=== PATIENT | female | born 1945 | race Caucasian/White ===

== ENCOUNTER → 2023-10-20 10:35 | Outpatient (REF) | payer MEDICARE, SELFPAY | LOC: WDC 10:35 | PROVIDERS: ATTENDING PHYSICIAN Nurse Practitioner Adult Health | DX: Z12.31 Encounter for screening mammogram for malignant neoplasm of breast (principal) | CPT/HCPCS: 77063; 77067 ==

== ENCOUNTER 2023-11-16 06:07 | Day surgery (SDC) | payer MEDICARE, SELFPAY ==
[2023-10-27 13:08] VITALS: BMI 31.0
[2023-10-27 14:12] LABS: Hematocrit 42.2 % (37.0-47.0); Hemoglobin 14.7 g/dL (12.0-16.0); Mean Corp Hgb Conc. 34.8 g/dL (33.0-37.0); Mean Corpuscular Hgb 30.9 pg (27.0-31.0); Mean Corpuscular Volume 88.7 fL (81.0-99.0); Mean Platelet Volume 9.7 fL (7.4-10.4); Platelet Count 315 10^3/uL (130-400); Red Blood Cell Count 4.76 10^6/uL (4.20-5.40); Red Cell Dist. Width 12.8 % (11.5-14.5); White Blood Cell Count 9.7 10^3/uL (4.8-10.8)
[2023-10-27 14:30] LABS: ALT (SGPT) 23 U/L (0-35); AST (SGOT) 29 U/L (14-36); Albumin 4.7 g/dl (3.5-5.0); Alkaline Phosphatase 139 U/L (38-126); Blood Urea Nitrogen 14 mg/dl (7-17); Calcium 10.4 mg/dl (8.4-10.2); Carbon Dioxide 35 mmol/L (22-30); Chloride 93 mmol/L (98-107); Estimated Creatinine Clearance 76 ml/min; Glucose 88 mg/dl (70-99); Potassium 4.6 mmol/L (3.5-5.1); Sodium 138 mmol/L (135-145); Total Bilirubin 0.8 mg/dl (0.2-1.3); Total Protein 6.9 g/dl (6.3-8.2); eGFR > 60.00
[2023-10-27 22:46] LABS: Glycohemoglobin (HgbA1c) 6.6 % (4.0-5.6)
--- NOTE | 2023-11-02 14:56 | VNURNOTE ---
Patient is scheduled for an elective R TKA on 11/16/23- she is a same day patient. Spoke with patient prior to surgery. Introduced role of VN liaison. Patient reports that she lives with her spouse in a MULTI story home. She will create a first
floor set up and there is a powder room on the charge entry. 3 ELLA. She currently functions independently. She has a rolling walker, cane, gel packs. She has never had VN services.
PCP is Roberta Arevalo NP.
Pharm is [facility] [address] [place]
Discussed orthopedic program and post surgical plans.
Reviewed that she will have VN services initially and will then start outpatient PT at [facility] in [place].
Patient selects VN for her home care needs and will go to [facility] for outpatient PT.
Patient is in agreement with plan and states that her spouse will be home with her. Daughter lives nearby and can also assist.
Patient completed online education video.
Referral placed in [facility].
[2023-11-11 13:18] VITALS: BMI 31.0
[2023-11-16] VITALS (24 sets, daily range): BP systolic 114–211; BP diastolic 55–106; PULSE 70; O2SAT 98; BMI 31.0
[2023-11-16 06:38] LABS: Glucose - Point of Care 144 mg/dl (70-99)
[2023-11-16] MEDS: TYLENOL 650 MG PO (06:39)
[2023-11-16] MEDS: CELEBREX 200 MG PO (06:39)
[2023-11-16] MEDS: NORMOSOL-R/PLASMALYTE-A 1000 IV ×2 (06:40→11:28)
[2023-11-16 08:58] LABS: Glucose - Point of Care 150 mg/dl (70-99)
[2023-11-16] MEDS: APRESOLINE 5 MG IV ×2 (09:57→10:07)
--- NOTE | 2023-11-16 10:05 | SUR.PHASEI ---
BP elevated, Hydralazine ordered by DR James. SDS transfer put on hold for same reason. Cheo ARAMBULA BSN.
[2023-11-16] MEDS: ANCEF 5 IV (11:28)
[2023-11-16 12:23] LABS: Glucose - Point of Care 293 mg/dl (70-99)
[2023-11-16] MEDS: NOVOLOG vial 3 UNITS SC (13:06)
== END 2023-11-16 13:25 | disposition home or self-care (01) ==
LOC: SDS 06:07
PROVIDERS: ATTENDING PHYSICIAN Specialist; FAMILY PHYSICIAN Nurse Practitioner Adult Health; OTHER PHYSICIAN Internal Medicine Hematology & Oncology
PROC: 0SRC0J9 Replacement of Right Knee Joint with Synthetic Substitute, Cemented, Open Approach (ICD-10-PCS; 2023-11-16)
DX: M17.11 Unilateral primary osteoarthritis, right knee (principal); D68.51 Activated protein C resistance; E11.9 Type 2 diabetes mellitus without complications; E66.9 Obesity, unspecified; Z68.31 Body mass index [BMI] 31.0-31.9, adult; I10 Essential (primary) hypertension; E78.5 Hyperlipidemia, unspecified; Z88.1 Allergy status to other antibiotic agents
CPT/HCPCS: 27447; 36415; 73560; 80053; 82962; 83036; 85027; 87070; 93005; 97110; 97162; C1713; C1776

== ENCOUNTER 2023-11-21 18:59 | Inpatient (IN) | payer MEDICARE, SELFPAY ==
[2023-11-21] VITALS (12 sets, daily range): BP systolic 142–211; BP diastolic 61–88; PULSE 68–76; BMI 30.6; BMI 30.9
[2023-11-21] MEDS: NSS 1000 IV (12:50)
--- NOTE | 2023-11-21 12:50 | ED.GENMED ---
History of Present Illness
General
Chief Complaint: Fainting/Passed Out
Time Seen by Provider: 11/21/23 12:36
History of Present Illness
History of Present Illness:
78-year-old female presents to the emergency department for evaluation of weakness, dizziness, and multiple syncopal episodes. Reportedly had a syncopal event while undergoing x-rays of her knee. She is 5 days status post right total knee
replacement, of note she was started on Eliquis prophylactically for clot prevention due to history of factor V. She had a repeated syncopal event this morning. She reports feeling thirsty despite drinking copious amounts of water. Denies any
known head injuries with these falls but did discover a new 'lump' to the left scalp today. No chest pain or shortness of breath, no palpitations preceding the syncopal events.
Past History
Past History
ED Past Medical History: None
ED Past Surgical History: None
Review of Systems
Review of Systems
Allergies reviewed?: Yes
All Other Systems: ROS reviewed and negative except as documented in HPI and ROS
Phy Exam
Physical Exam
Physical Exam:
GEN: Well appearing, NAD, WDWN
HEENT: Oral mucosa moist, no scleral icterus, no nasal congestion
Cardiac: Regular rate and rhythm, no murmurs
Lung: No respiratory distress, no tachypnea
MSK: No gross deformity or injuries
Skin: Good color, no pallor or jaundice, no rashes
Neuro: AO x3; CN II-XII grossly intact. BUE strength 5/5 in all [place], sensation intact and symmetric. BLE strength 5/5 in all [place], sensation intact and symmetric
Psych: Calm, cooperative
Course
Orders/Labs/Results
Orders:
Orders
11/21/23 12:44
Electrocardiogram (*1) Urgent
Reason for Study: Syncope
CT Head W/o Iv Contrast Urgent
Comment:
Reason For Exam: possible head injury on Eliquis
EKG- Treatment ONCE
11/21/23 12:45
0.9% Sodium Chloride 1000 ml [Nss] 1,000 ml IV BOLUS
11/21/23 12:50
Complete Blood Count/With Diff Urgent
Comprehensive Metabolic Panel Urgent
11/21/23 14:07
Potassium Chloride [KCl] 40 meq PO NOW STA
11/21/23 17:10
BMP [Basic Metabolic Panel] Routine
Serum Osmolality Routine
Comment: ADD ON
11/21/23 17:40
Add On- LAB Urgent
Tests Added?: serum osmolality
11/21/23 17:44
Urinalysis Reflex To Culture Urgent
Urine Sodium Urgent
11/21/23 18:45
Admit/Transfer Patient As Directed
Co-Sign Provider:
Level of Care: Inpatient admission
Assign to:: Telemetry
Physician / Group: Bernardino
Diagnosis: Syncope, Hyponatremia
Reason for Telemetry: Syncope
Date to Stop Telemetry: 11/23/23
Time to Stop Telemetry: 11:00
Reason for Hospitalization: Syncope, Hyponatremia
Expected length of stay greater than two midnights?: Yes
ELOS- Estimated Length of Stay in days: 2
I certify the patient meets the requirements for IP care: Yes
PRN Pain Medication Management As Directed
May give lesser potent ordered pain med per pt: Yes
preference::
Protocol:: Medication orders for pain may be administered in a
manner that supports deferring to patient preference
when the pt is:
- Requesting an ordered lesser potent pain medication.
Least to most potent pain medications are defined
as: acetaminophen < NSAID < tramadol < opioids
(morphine, oxycodone, hydromorphone).
- Requesting a lesser dose of the same medication IF
ORDERED.
- Requesting a less intrusive route of administration
if both routes are prescribed by the provider (PO <
IV).
11/21/23 18:47
Code Status As Directed
Resuscitation Status: Full Code
11/21/23 18:48
Add On- LAB Urgent
Tests Added?: Urine Osm
11/21/23 18:55
Osmolality, Random Urine Urgent
11/21/23 19:31
COVID-19 Antigen Urgent
Source: Nasal Swab
11/23/23 11:00
DC Protocol for Telemetry ONCE
Abnormal Lab Results
11/21/23 11/21/23
12:50 17:10
WBC 15.8 H 10^3/uL
(4.8-10.8)
RBC 4.12 L 10^6/uL
(4.20-5.40)
Hct 34.2 L %
(37.0-47.0)
Abs Immat Gran (auto) 0.1 H 10^3/uL
(0-0.05)
Absolute Neuts (auto) 12.6 H 10^3/uL
(1.4-6.5)
Absolute Monos (auto) 1.5 H 10^3/uL
(0.1-0.6)
Immature Gran % 0.8 H %
(0-0.5)
Neutrophils % 79.6 H %
(42.2-75.2)
Lymphocytes % 9.3 L %
(20.5-51.1)
Sodium 129 L mmol/L 128 L mmol/L
(135-145) (135-145)
Potassium 3.3 L mmol/L
(3.5-5.1)
Chloride 86 L mmol/L 87 L mmol/L
(98-107) (98-107)
Carbon Dioxide 32 H mmol/L 33 H mmol/L
(22-30) (22-30)
BUN 21 H mg/dl 20 H mg/dl
(7-17) (7-17)
Glucose 175 H mg/dl 207 H mg/dl
(70-99) (70-99)
Total Bilirubin 2.3 H mg/dl
(0.2-1.3)
AST 41 H U/L
(14-36)
ALT 40 H U/L
(0-35)
Total Protein 6.2 L g/dl
(6.3-8.2)
11/21/23 12:50
11/21/23 17:10
Vital Signs
Initial and Last Documented VS:
Initial Vital Signs
Pulse Resp BP Pulse Ox
65 18 211/88 98
11/21/23 12:34 11/21/23 12:34 11/21/23 12:34 11/21/23 12:34
Last Documented Vital Signs
Pulse Resp BP Pulse Ox
73 14 157/61 98
11/21/23 17:00 11/21/23 17:00 11/21/23 18:00 11/21/23 17:00
MDM/Problems Addressed
MDM/Problems Addressed:
78-year-old female presents with recurrent syncope and generalized weakness/dizziness after total knee replacement earlier this week. She appears clinically well and has no focal neurologic deficits. Workup reveals mild hyponatremia and likely
some component of hypovolemia, she was given IV fluids and on reevaluation of labs hyponatremia was unchanged. She continues to feel lightheaded and feels somewhat unsteady with gait and ambulation thus will admit for further evaluation and
management
*Critical Care Note
Total Time (30-74mins, 75-104mins- exclusive of procedures): Not Applicable
ED Attending Note
-
Portions of this chart may have been created with voice recognition software.� Occasional wrong word or��sound alike� substitutions may have occurred due to the inherent limitations of voice recognition software.
Discharge Plan
Departure
Patient Disposition: Admit
Date of Disposition: 11/21/23
Time of Disposition: 17:48
Admit to: Med/Surg
Presentation/result/management discussed w/ accepting MD/DO: Hospitalist
Discharge Problem:
Acute hyponatremia, Syncope
Interventions
Interventions:
*Risk Screen - Suicide Last Done: 11/21/23 12:45
*General Assessment Last Done: 11/21/23 12:48
*Neglect/Abuse Screening Last Done: 11/21/23 12:45
*ED COVID-19 Vaccine History Last Done: 11/21/23 12:46
ED- Cardiac Assessment Last Done: 11/21/23 13:40
ED- Neurological Assessment Last Done: 11/21/23 13:44
[2023-11-21 12:58] LABS: % Basophils 0.1 % (0-2); % Immature Granulocytes 0.8 % (0-0.5); % Lymphocytes 9.3 % (20.5-51.1); % Monocytes 9.2 % (1.7-9.3); % Neutrophils 79.6 % (42.2-75.2); Absolute Eosinophils 0.2 10^3/uL (0-0.7); Absolute Immature Granulocytes 0.1 10^3/uL (0-0.05); Absolute Lymphocytes 1.5 10^3/uL (1.2-3.4); Absolute Monocytes 1.5 10^3/uL (0.1-0.6); Absolute Neutrophils 12.6 10^3/uL (1.4-6.5); Hematocrit 34.2 % (37.0-47.0); Hemoglobin 12.2 g/dL (12.0-16.0); Mean Corp Hgb Conc. 35.7 g/dL (33.0-37.0); Mean Corpuscular Hgb 29.6 pg (27.0-31.0); Mean Platelet Volume 9.5 fL (7.4-10.4); Nucleated Red Blood Cells % 0 %; Platelet Count 331 10^3/uL (130-400); Red Blood Cell Count 4.12 10^6/uL (4.20-5.40); Red Cell Dist. Width 13.2 % (11.5-14.5); White Blood Cell Count 15.8 10^3/uL (4.8-10.8)
[2023-11-21 13:43] LABS: ALT (SGPT) 40 U/L (0-35); AST (SGOT) 41 U/L (14-36); Albumin 4.2 g/dl (3.5-5.0); Alkaline Phosphatase 91 U/L (38-126); Blood Urea Nitrogen 21 mg/dl (7-17); Calcium 9.5 mg/dl (8.4-10.2); Carbon Dioxide 32 mmol/L (22-30); Chloride 86 mmol/L (98-107); Estimated Creatinine Clearance 88 ml/min; Glucose 175 mg/dl (70-99); Potassium 3.3 mmol/L (3.5-5.1); Sodium 129 mmol/L (135-145); Total Bilirubin 2.3 mg/dl (0.2-1.3); Total Protein 6.2 g/dl (6.3-8.2); eGFR > 60.00
[2023-11-21] MEDS: KCL 40 MEQ PO (14:36)
[2023-11-21 17:36] LABS: Blood Urea Nitrogen 20 mg/dl (7-17); Carbon Dioxide 33 mmol/L (22-30); Chloride 87 mmol/L (98-107); Estimated Creatinine Clearance 88 ml/min; Glucose 207 mg/dl (70-99); Potassium 3.5 mmol/L (3.5-5.1); Sodium 128 mmol/L (135-145); eGFR > 60.00
[2023-11-21 17:59] LABS: Osmolality Serum 275 mOsm/kg (275-300)
--- NOTE | 2023-11-21 18:49 | HPS.HSE ---
Family Physician
-
Family Physician: Paul Arevalo
Chief Complaint
-
Falls
History of Present Illness
Patient is a 78y F with PMH significant for hypertension, DM-II and recent R TKA who presents to ED complaining of falls at home. Patient underwent R TKA on 11/16/23. She was started on steroids post-op for nausea prevention - as well as Eliquis
for DVT prophylaxis. Patient states that her sugars have been running high and she has been sleeping poorly since the surgery. Two nights ago she fell twice going to the bathroom. The initial fall occurred when she got her foot caught in the
sheets and fell. She fell again on her way back from the bathroom and describes this as becoming lightheaded and 'sliding down the wall'. She does not believe that she passed out. She was seen the following day by Ortho for evaluation. X-rays
were done in the office which showed no issue with the R TKA. Patient notes that during the x-rays she became lightheaded. She did not fall and did not pass out. She did request a wheelchair to leave the office.
At home Thursday evening patient slept for the first time in several days. She woke twice to use the bathroom at night with no issues.
Today she woke after 9 AM and went to use the bathroom. She collapsed. Patient denies any prodrome of lightheadedness or dizziness prior to this fall. was present and 'caught' her with no reported trauma / injury. However, patient was
noted to complain of L head discomfort after the fall and has a lump in this area.
EMS was called after this episode. Sugar checked by her and was 165. Patient was brought to the the ED where she is currently resting comfortably.
Patient had nausea and 'dry heaves' with her episode this AM.
Medical History
Past Medical History
Past Medical History: Reports Other
Additional Past Medical History:
Hypertension
DM-II
Factor V Leiden (Heterozygous)
Spinal Stenosis
DJD
Past Surgical History: Reports Other
Additional Past Surgical History:
R TKA (11/16/23)
Cataracts
Bunionectomy
ACL Replacement
Carpal Tunnel Surgery
Social History
Tobacco: Former Smoker (Quit smoking 50 years ago.)
Alcohol: None
Drug: None
Family History
Family History: Not pertinent
Allergies / Home Medications
Allergies reflects when Allergies were last updated in [facility].
Home Medications with original date entered in [facility]
Allergy/Medication List:
Allergies
Allergy/AdvReac Type Severity Reaction Status Date / Time
ciprofloxacin [From Cipro] Allergy C-DIFF Verified 11/16/23 06:18
Home Medications
ascorbic acid (vitamin C) 500 mg tablet (Vitamin C) 500 mg PO BID 11/10/23
cholecalciferol (vitamin D3) 50 mcg (2,000 unit) capsule (Vitamin D3) 50 mcg PO BID 11/10/23
glyburide 2.5 mg tablet 2.5 mg PO DAILY 11/10/23
nebivolol 5 mg tablet 5 mg PO DAILY 11/10/23
simvastatin 10 mg tablet 10 mg PO HS 11/10/23
trandolapril 2 mg-verapamil ER 240 mg tablet,immed-exten release 24 hr 1 tab PO DAILY 11/10/23
triamterene 37.5 mg-hydrochlorothiazide 25 mg tablet 1 tab PO BID 11/10/23
vitamin B complex 1 cap PO DAILY 11/10/23
apixaban 2.5 mg tablet (Eliquis) 2.5 mg PO BID #30 tabs 11/16/23
Lactobac no.2-Bifidobac no.1-S. thermo 112.5 billion cell capsule (Visbiome) 1 cap PO DAILY 11/21/23
acetaminophen 500 mg capsule 1,000 mg PO Q6HPRN PRN mild Pain 11/21/23
docusate sodium 100 mg capsule (Colace) 100 mg PO BIDPRN PRN constipation 11/21/23
ondansetron 4 mg disintegrating tablet 4 mg PO Q8HPRN PRN nausea 11/21/23
Review of Systems
-
History Source: Patient
A 12 point ROS was completed and negative except as noted: Yes
Constitutional: Reports Fatigue and Sleep Disturbance; Denies Fever or Chills
EENT: Denies Sore Throat
Respiratory: Reports Cough; Denies Trouble Breathing
Cardiac: Denies Chest Pain or Palpitations
Abdomen/GI: Reports Nausea and Vomiting; Denies Abdominal Pain or Diarrhea
: Denies Dysuria, Frequency or Flank Pain
Musculoskeletal: Reports Joint Pain; Denies Edema
Neurological: Reports Dizzy, Headache and Weakness
Psych: Denies Depression or Anxiety
Physical Exam
Vital Signs
Vital Signs
Pulse Resp BP Pulse Ox
73 14 157/61 98
11/21/23 17:00 11/21/23 17:00 11/21/23 18:00 11/21/23 17:00
Physical Exam
General: Other (78y F in no acute distress.)
HEENT: Moist mucous membranes and PERRLA
Respiratory: Clear; No Wheezes, Rales or Rhonchi
Cardiac: S1/S2, Regular Rhythm and Murmur (II/ BASIL)
GI: Soft, Non Tender, Non Distended and Normal Bowel Sounds
Musculoskeletal: No Clubbing, No Cyanosis, No Edema and Other (R Knee incision with dressing in place.)
Neuro: AO x 3 and Nonfocal/grossly intact
Laboratory Results
-
11/21/23 12:50
11/21/23 17:10
Laboratory Results
Total Bilirubin 2.3 mg/dl (0.2-1.3) H 11/21/23 12:50
AST 41 U/L (14-36) H 11/21/23 12:50
ALT 40 U/L (0-35) H 11/21/23 12:50
Alkaline Phosphatase 91 U/L (38-126) 11/21/23 12:50
Impression/Plan
-
A/P: Patient is a 78y F with PMH significant for hypertension, DM-II and recent knee replacement who presents to ED after syncope this AM / falls at home.
Syncope
Fall at Home
- Admit for further evaluation and treatment.
- Suspect that symptom(s) are multifactorial due to recent surgery, med changes, etc.
- Treat individual issues as noted below.
- CT head unremarkable in the ED.
- Monitor on tele overnight.
- PT / OT evaluations.
- Follow for any new / recurrent symptoms.
Hyponatremia
- Na = 128 / 129 on labs here in the ED.
- Likely due to recent surgery, pain and thiazide diuretic.
- Hold HCTZ.
- Fluid restriction (Na decreased slightly after IVFs bolus in the ED).
- Follow for improvement.
- Urine studies ordered - follow-up results.
Benign Hypertension
- Stable. Continue nadolol with holding parameters.
- Hold other BP agents - especially HCTZ - for now.
- Adjust regimen as needed for adequate control.
DM-II
- Started on sulfonylurea about 6 weeks ago.
- No apparent hypoglycemia with recent symptoms / syncope.
- Hold oral meds for now.
- Discontinue steroids.
- Follow glucose and cover with SSI as needed.
- Update A1C.
s/p R TKA
- Stable. X-rays in the Ortho office Thursday were unremarkable.
- PT / OT as noted above.
DVT Prophylaxis: Continue Eliquis for prophylaxis s/p recent orthopedic surgery. Hematology evaluation was for up to 35 days of Eliquis post-op.
Code Status: Full
[2023-11-21 20:02] LABS: COVID-19 Antigen Negative (Negative)
--- NOTE | 2023-11-21 21:34 | PTCARENOTE ---
Receive pt from ER. Pt alert oriented X3, calm and cooperative. Pt assisted X1 to her bed, steady on her feet. Pt has no complaint of dizziness, lightheaded, or chest pain. Pt oriented to the room, theodore delgado within reach. Pt on NSR on telemonitor.
VSS (T=99.3, HR=72, RR=18, MY=294/79, SpO2=97% on RA). Pt advised to call for assistance before OOB. Will continue to monitor the pt.
[2023-11-21] MEDS: ELIQUIS 2.5 MG PO (21:35)
[2023-11-21] MEDS: LIPITOR 10 MG PO (21:35)
[2023-11-21 23:48] LABS: Glucose - Point of Care 153 mg/dl (70-99)
[2023-11-22] VITALS (9 sets, daily range): BP systolic 122–165; BP diastolic 50–78; PULSE 60–77; BMI 30.9
[2023-11-22 03:54] LABS: Urine Albumin Negative (Neg - Trace); Urine Bilirubin Negative (Negative); Urine Character Clear (Clear); Urine Color Yellow; Urine Glucose Negative (Negative); Urine Ketone Negative (Negative); Urine Leukocyte Negative (Negative); Urine Nitrite Negative (Negative); Urine Occult Blood Negative (Negative); Urine Urobilinogen Negative (Neg - 1+)
[2023-11-22 04:06] LABS: Urine Sodium 36 mmol/L (30-90)
[2023-11-22 08:29] LABS: Glucose - Point of Care 167 mg/dl (70-99)
[2023-11-22 08:47] LABS: Hematocrit 29.2 % (37.0-47.0); Hemoglobin 10.3 g/dL (12.0-16.0); Mean Corp Hgb Conc. 35.3 g/dL (33.0-37.0); Mean Corpuscular Hgb 29.5 pg (27.0-31.0); Mean Corpuscular Volume 83.7 fL (81.0-99.0); Mean Platelet Volume 9.6 fL (7.4-10.4); Platelet Count 321 10^3/uL (130-400); Red Blood Cell Count 3.49 10^6/uL (4.20-5.40); Red Cell Dist. Width 13.3 % (11.5-14.5); White Blood Cell Count 13.6 10^3/uL (4.8-10.8)
--- NOTE | 2023-11-22 08:54 | W.PN.HOSP.TC ---
Today's Communication/Plan
-
see bold
Assessment / Plan
Assessment / Plan
78y F with PMH significant for hypertension, DM-II and recent knee replacement who presents to ED after syncope this AM / falls at home.
Gen: NAD, AAOx3.
Eyes: EOMI, PERRLA, no scleral icterus.
Neck: supple.
CV: RRR, +S1/S2, no m/r/g.
Resp: CTAB, no rales, wheezes, or rhonchi.
Abd: +BS, soft, NT, ND
Skin: No rashes. 2+ RLE edema with ecchymoses
Neuro: CN 2-12 intact, non-focal.
Psych: Normal mood and affect.
CT brain: No evidence of acute intracranial abnormality.
Syncope, Fall at Home:
-Suspect that symptom(s) are multifactorial due to recent surgery (R TKA 11/16/23) and med changes
-orthostatic VS NEG
-PT/OT
-Tele (reviewed by me): SR
-check echo
-c/s cards
Hyponatremia:
-serum Osm 275, Zaria 36
-Likely due to recent surgery, pain and thiazide diuretic
-Na 128 on admission, now 126
-HCTZ stopped
-cont FR (Na decreased slightly after IVFs bolus in the ED)
-pt admits to taking in large amounts of free water post-op
Essential Hypertension:
-cont Bystolic
DM2:
-recent a1c 6.6%
-Home glyburide on hold, home steroids been stopped
-No reports of hypoglycemia
-SSI/accuchecks
Hypokalemia:
-PO K
Obesity due to excess calories:
-Encourage weight loss
-Affects all aspects of care
FULL/Eliquis
Anticipated Discharge: Within 24 hours
Subjective/Interval History
-
Date of Service: November 22, 2023
Objective Data
-
Labs:
Laboratory Results
11/22/23
07:31
WBC 13.6 H
Hgb 10.3 L
Hct 29.2 L
Plt Count 321
Sodium Pending
Potassium Pending
Chloride Pending
Carbon Dioxide Pending
BUN Pending
Creatinine Pending
Glucose Pending
Calcium Pending
Vital Signs:
Vital Signs
Temp Pulse Resp BP Pulse Ox
98.6 F 62 16 147/63 97
11/22/23 07:55 11/22/23 07:55 11/22/23 07:55 11/22/23 07:55 11/22/23 07:55
I&O
11/21/23 11/22/23 11/23/23
06:59 06:59 06:59
Output Total 650 / 650
Balance -650 / -650
[2023-11-22] MEDS: BYSTOLIC 5 MG PO (09:00)
[2023-11-22] MEDS: ELIQUIS 2.5 MG PO ×2 (09:00→20:25)
[2023-11-22] MEDS: NOVOLOG FLEXPEN-LOW RESISTANCE 1 UNITS SC (09:51)
[2023-11-22 09:54] LABS: Blood Urea Nitrogen 16 mg/dl (7-17); Calcium 8.6 mg/dl (8.4-10.2); Carbon Dioxide 30 mmol/L (22-30); Chloride 86 mmol/L (98-107); Estimated Creatinine Clearance 88 ml/min; Glucose 134 mg/dl (70-99); Potassium 3.4 mmol/L (3.5-5.1); Sodium 126 mmol/L (135-145); eGFR > 60.00
[2023-11-22] MEDS: KCL 40 MEQ PO (11:53)
[2023-11-22 11:57] LABS: Glucose - Point of Care 210 mg/dl (70-99)
[2023-11-22] MEDS: NOVOLOG FLEXPEN-LOW RESISTANCE 2 UNITS SC (11:57)
--- NOTE | 2023-11-22 14:19 | CON.CAR ---
Consultation
Consultation Request
Date/Time Consultation Requested: 11/22/23 11:00am
Date/Time Consultation Performed: 11/22/23 2:00pm
Requesting Provider: Dr. Fabian
Performing Provider: Dr. Doan
Reason for Consultation: syncope
Medical History
-
Chief Complaint: syncope
History of Present Illness:
78-year-old female past medical history of hypertension, factor V Leiden, diabetes presents with an episode of syncope. She had a right total knee arthroplasty 1 week ago on November 15, 2020. Several days after her procedure she tripped and
fell. She denies any lightheadedness during that episode. Then this morning at 9 AM she was in the bathroom and suddenly passed out. Patient denies any further episodes of lightheadedness. Her checked her sugar which was unremarkable.
She denies any chest pains, shortness of breath, orthopnea, or PND. There was mild R edema. She did have nausea and some dry heaves with this episode. She currently she feels well. She has had no previous episode of syncope. She does take
several medications for her blood pressure. She has been on Eliquis post procedure for DVT prophylaxis.
Past Medical History
Past Medical History: HTN, NIDDM and Other (Factor V Leiden.)
Past Surgical History: Orthopedic (R TKA 11/16/23)
Social History
Tobacco: Non-Smoker
Alcohol: Occasional
Drug: None
Personal:
Living: With Family
Family History
Family History: Hypertension
Allergies / Home Medications
Allergy/AdvReac Type Severity Reaction Status Date / Time
ciprofloxacin [From Cipro] Allergy C-DIFF Verified 11/16/23 06:18
�Medication �Instructions �Recorded �Confirmed �Type
ascorbic acid (vitamin C) 500 mg 500 mg PO BID Supplement 11/10/23 11/21/23 History
tablet (Vitamin C)
cholecalciferol (vitamin D3) 50 50 mcg PO BID Supplement 11/10/23 11/21/23 History
mcg (2,000 unit) capsule (Vitamin
D3)
glyburide 2.5 mg tablet 2.5 mg PO DAILY Diabetes 11/10/23 11/21/23 History
nebivolol 5 mg tablet 5 mg PO DAILY Blood Pressure 11/10/23 11/21/23 History
simvastatin 10 mg tablet 10 mg PO HS High Cholesterol 11/10/23 11/21/23 History
trandolapril 2 mg-verapamil ER 240 1 tab PO DAILY Blood Pressure 11/10/23 11/21/23 History
mg tablet,immed-exten release 24 hr
triamterene 37.5 1 tab PO BID Blood Clot 11/10/23 11/21/23 History
mg-hydrochlorothiazide 25 mg tablet Prevention/Tx
vitamin B complex 1 cap PO DAILY Supplement 11/10/23 11/21/23 History
apixaban 2.5 mg tablet (Eliquis) 2.5 mg PO BID #30 tabs 11/16/23 11/21/23 Rx
Lactobac no.2-Bifidobac no.1-S. 1 cap PO DAILY Gastrointestinal 11/21/23 11/21/23 History
thermo 112.5 billion cell capsule Issue
(Visbiome)
acetaminophen 500 mg capsule 1,000 mg PO Q6HPRN PRN mild Pain 11/21/23 11/21/23 History
docusate sodium 100 mg capsule 100 mg PO BIDPRN PRN constipation 11/21/23 11/21/23 History
(Colace)
ondansetron 4 mg disintegrating 4 mg PO Q8HPRN PRN nausea 11/21/23 11/21/23 History
tablet
Review of Systems
-
History Source: Patient
Constitutional: Fatigue
EENT: No Symptoms
Respiratory: No Symptoms
Cardiac: Syncope
Abdomen/GI: Nausea
: No Symptoms
Musculoskeletal: Joint Pain
Skin: No Symptoms
Neurological: No Symptoms
Endocrine: No Symptoms
Hematologic/Lymphatic: No Symptoms
Physical Exam
Vital Signs
Temp Pulse Resp BP Pulse Ox
99.0 F 62 16 140/66 96
11/22/23 11:37 11/22/23 11:37 11/22/23 11:37 11/22/23 11:37 11/22/23 11:37
Lab Results
11/22/23 07:31
11/22/23 07:31
Physical Exam
General: Well Developed and Well Nourished
HEENT: Normocephalic
Respiratory: Clear and Non Labored Respirations
Cardiac: S1/S2, Regular Rhythm and Murmur (02/28 syst LSB)
GI: Soft, Non Tender and Non Distended
Musculoskeletal: Edema (+1 R LE edema)
Skin: Warm
Neuro: AO x 3
Psych: Calm
Impression / Plan
-
Assess:
syncope
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
HTN
DM Type 2
Factor V Leiden
Hyponatremia
EKG, normal sinus rhythm, nonspecific T wave abnormality.
Plan:
She presents with syncope of unclear etiology. Telemetry with no significant events. Blood pressure is currently stable.
Would hold by systolic for now. Continue to hold Dyazide and trandolapril/verapamil. Continue gentle hydration and check orthostatic vital signs.
Will check echocardiogram in AM. Check troponin
With no chest pains and stable vital signs would doubt thromboembolic disease although she does have factor V Leiden. Would recommend continue Eliquis.
Will review echo.
Data Reviewed
-
EKG: Report Reviewed by me
Labs: Labs Reviewed by me
Old Records: Reviewed
--- NOTE | 2023-11-22 14:21 | CM ---
CRISTEL met with Frida to complete IA. She lives with her in a 2 story home with 3 entry steps. Recent TKA on 11/16/2023 with falls at home.
Pt has a RW, Cane, raised toilet seats and shower chair. Pt seen by PT and OT with recommendation for return to Outpatient therapy which she had been attending after TKA.
PCP is Roberta Arevalo
Pharmacy is [facility] in [place]
Plan: Discharge to home with resumption of outpatient PT.
[2023-11-22 16:22] LABS: Osmolality Urine 398 mOsm/kg (300-900)
[2023-11-22 17:42] LABS: Glucose - Point of Care 129 mg/dl (70-99)
[2023-11-22] MEDS: NOVOLOG FLEXPEN-LOW RESISTANCE SC (17:43)
[2023-11-22 19:51] LABS: Troponin I 0.024 ng/ml
[2023-11-22] MEDS: TYLENOL 650 MG PO (20:25)
[2023-11-22] MEDS: LIPITOR 10 MG PO (22:22)
[2023-11-22 22:41] LABS: Glucose - Point of Care 162 mg/dl (70-99)
[2023-11-23 03:47] VITALS: BP 135/62
[2023-11-23 06:00] VITALS: BMI 30.9
[2023-11-23 08:46] VITALS: BP 174/82
[2023-11-23 08:53] LABS: Glucose - Point of Care 140 mg/dl (70-99)
[2023-11-23] MEDS: NOVOLOG FLEXPEN-LOW RESISTANCE SC (09:12)
[2023-11-23] MEDS: ELIQUIS 2.5 MG PO (09:14)
--- NOTE | 2023-11-23 09:55 | W.PN.HOSP.TC ---
Addendum entered and electronically signed by Juan Fabian MD 11/23/23 13:00:
Total time spent on d/c = 35 min. This included today's physical exam, progress note, review of laboratory and diagnostic data, preparation of discharge documents and prescriptions, and discussions about the pt's hospital course and discharge plan
with the patient and other medical librarian involved in the patient's care.
Original Note:
Today's Communication/Plan
-
see bold
Assessment / Plan
Assessment / Plan
78y F with PMH significant for hypertension, DM-II and recent knee replacement who presents to ED after syncope this AM / falls at home.
Gen: NAD, AAOx3.
Eyes: EOMI, PERRLA, no scleral icterus.
Neck: supple.
CV: remains RRR, +S1/S2, no m/r/g.
Resp: remains CTAB, no rales, wheezes, or rhonchi.
Abd: remains +BS, soft, NT, ND
Skin: No rashes. 2+ RLE edema with ecchymoses
Neuro: CN 2-12 intact, non-focal.
Psych: Normal mood and affect.
CT brain: No evidence of acute intracranial abnormality.
Syncope, Fall at Home:
-Suspect that symptom(s) are multifactorial due to recent surgery (R TKA 11/16/23) and med changes
-orthostatic VS NEG
-PT/OT
-Tele (reviewed by me): SR
-check echo
-cards following
-Bystolic stopped
Hyponatremia:
-serum Osm 275, Zaria 36
-Likely due to recent surgery, pain and thiazide diuretic
-Na 128 on admission, now 126
-HCTZ stopped
-cont FR (Na decreased slightly after IVFs bolus in the ED)
-pt admits to taking in large amounts of free water post-op
Essential Hypertension:
-Bystolic stopped
-start Norvasc 5
DM2:
-recent a1c 6.6%
-Home glyburide on hold, home steroids been stopped
-No reports of hypoglycemia
-SSI/accuchecks
Hypokalemia:
-s/p PO K
Obesity due to excess calories:
-Encourage weight loss
-Affects all aspects of care
FULL/Eliquis
Anticipated Discharge: Within 24 hours
Subjective/Interval History
-
Date of Service: November 23, 2023
No new complaints.
Objective Data
-
Vital Signs:
Vital Signs
Temp Pulse Resp BP Pulse Ox
98.0 F 69 16 174/82 100
11/23/23 08:46 11/23/23 08:46 11/23/23 08:46 11/23/23 08:46 11/23/23 09:10
I&O
11/22/23 11/23/23 11/24/23
06:59 06:59 06:59
Intake Total 960 / 960
Output Total 650 / 650
Balance -650 / -650 960 / 960
[2023-11-23 10:40] VITALS: BP 140/78; BP 150/61; BP 159/72; PULSE 69; PULSE 78; PULSE 86
[2023-11-23 10:42] LABS: Blood Urea Nitrogen 15 mg/dl (7-17); Calcium 9.2 mg/dl (8.4-10.2); Carbon Dioxide 34 mmol/L (22-30); Chloride 88 mmol/L (98-107); Estimated Creatinine Clearance 89 ml/min; Glucose 216 mg/dl (70-99); Potassium 3.8 mmol/L (3.5-5.1); Sodium 129 mmol/L (135-145); eGFR > 60.00
[2023-11-23] MEDS: NORVASC 5 MG PO (10:55)
--- NOTE | 2023-11-23 11:29 | W.PN.CARDCBS ---
Addendum entered and electronically signed by Chai Monroy DO 11/23/23 14:18:
I saw and examined the patient.
The Automatic Oven Operator's note was reviewed and I agree with the note.
Comment:
Plan:
Tele negative.
Possible vagal mediated syncope. No recurrence.
HR and bp stable.
Cont to hold dyazide
Echo was unremarkable and d/w pt
Outpt monitor to be considered to be placed at time of follow up appt.
Pt was appreciative.
Original Note:
Today's Communication / Plan
-
Echo with normal LV size and function, no significant valvular heart disease
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
Should check BMP 1 week postdischarge
Impression / Plan
-
Assess:
syncope
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
HTN
DM Type 2
Factor V Leiden
Hyponatremia
EKG, normal sinus rhythm, nonspecific T wave abnormality.
Plan:
She presents with syncope of unclear etiology. Telemetry personally reviewed 11/23/23 - no arrhythmias noted. HRs high 50s-80s. Blood pressure is stable and borderline elevated at times. Bystolic remains on hold.
Echo 11/23/23: Normal left ventricular size, wall thickness and systolic function. No regional wall motion abnormalities are seen. LV ejection fraction is 60-65% . No significant valvular disease.
Continue to hold Dyazide in setting of hyponatremia. Na 129 11/23/23, improved from 126 11/22/23
Check BMP 1 week postdischarge
troponin negative x 1 no chest pain
With no chest pains and stable vital signs would doubt thromboembolic disease although she does have factor V Leiden. Would recommend continue Eliquis, which which she was started on for thromboembolic prophylaxis status post knee replacement
11/16/2023.
will arrange for outpatient followup at [facility] with one week Bardi monitor.
Progress Note - Hadoop Consultant
Subjective
Date of Service: November 23, 2023
No further syncopal episodes
Feels well
Echo today, 11/23/2023 shows normal LV size and function with no significant valvular heart disease
Objective
Labs:
11/22/23 07:31
11/23/23 10:12
Labs
Hgb 10.3 g/dL (12.0-16.0) L 11/22/23 07:31
Hct 29.2 % (37.0-47.0) L 11/22/23 07:31
Plt Count 321 10^3/uL (130-400) 11/22/23 07:31
Sodium 129 mmol/L (135-145) L 11/23/23 10:12
Potassium 3.8 mmol/L (3.5-5.1) 11/23/23 10:12
BUN 15 mg/dl (7-17) 11/23/23 10:12
Creatinine 0.6 mg/dL (0.6-1.0) 11/23/23 10:12
Glucose 216 mg/dl (70-99) H 11/23/23 10:12
Troponins
11/22/23
18:37
Troponin I 0.024
Vital Signs and I&O:
Vital Signs
Temp Pulse Resp BP Pulse Ox
98.0 F 69 16 150/61 100
11/23/23 08:46 11/23/23 10:55 11/23/23 08:46 11/23/23 10:55 11/23/23 09:10
Vital Signs
Temp Pulse Resp BP Pulse Ox
98.0 F 69 16 150/61 100
11/23/23 08:46 11/23/23 10:55 11/23/23 08:46 11/23/23 10:55 11/23/23 09:10
Intake & Output
11/21/23 11/22/23 11/23/23 11/24/23
06:59 06:59 06:59 06:59
Intake Total 960 / 960
Output Total 650 / 650
Balance -650 / -650 960 / 960
Physical Exam
Physical Exam
GEN: No distress, awake, Ox3
HEENT: supple, anicteric, mmm
LUNGS: CTA, no wheezes/rales
CV: Reg, S1/S2, 1/6 syst LSB
ABD: soft, BS+, NT/ND
EXT: No edema
NEURO: Gross non-focal
SKIN: No rash
[2023-11-23 12:33] LABS: Glucose - Point of Care 163 mg/dl (70-99)
--- NOTE | 2023-11-23 12:49 | W.DCSUMMARY ---
Discharge Summary
Discharge Data
Date of Admission: 11/21/23
Date of Discharge: 11/23/23
-
Pending Results: No
Hospital Course
Primary diagnoses:
Syncope
Hyponatremia
Essential hypertension
Secondary diagnoses:
Type 2 diabetes mellitus
Hypokalemia
Obesity due to excess calories
Consultants:
Cardiology
Imaging:
Echo: Normal left ventricular size, wall thickness and systolic function. No regional
wall motion abnormalities are seen. LV ejection fraction is 60-65% .
No significant valvular disease.
No prior study available for comparison.
CT brain: No evidence of acute intracranial abnormality.
78-year-old female who presented with a chief complaint of falls and syncope as outlined in the H&P done on admission. Hospital course per problem list:
Syncope, Fall at Home: Patient had recent surgery. She had been on steroids for postop nausea and had had variations in her blood sugars. She was also having poor sleep. Orthostatic vital signs were negative. Patient was monitored on telemetry
and was in sinus rhythm. Echocardiogram was unremarkable as above. Her Bystolic was stopped. It is likely that her symptoms were multifactorial and due to recent surgery (R TKA 11/16/23) and med changes. Patient will follow-up with cardiology
after discharge and have an event monitor arranged.
Hyponatremia: This was likely due to recent surgery, pain, and thiazide diuretic use. Her thiazide diuretic was stopped. Her sodium on admission was 128. She did receive IV fluids on admission and her sodium dropped to 126. She was placed on
fluid restriction and improved to 129. Of note the patient admitted to taking large amounts of free water postoperatively after her recent total knee arthroplasty. The patient will continue on fluid restriction of 1200 cc/day and have a repeat BMP
in 1 week.
Essential Hypertension: Patient's home antihypertensive medications were stopped. She was started on Norvasc 10 mg daily on discharge.
Discharge Plan
-
Patient Disposition: Home (Routine Discharge)
Discharge Diagnosis/Procedures: Syncope, hyponatremia
Condition: Good
Diet: Diabetic, Carb Controlled and Other diet
Additional Diets: Fluid restrict to 1200cc/day
Activity: As tolerated
Driving Restrictions: As prior to admission
Blood Work: BMP in 1 week, script from PCP
Referrals:
Paul Arevalo CRNP [Family Provider] - in less than 1 week
Daksha Richter PA-C [Specified Professional Personl] - 12/04/23 8:20 am (You have an appointment at the cardiology office with Daksha Richter, Dr Parsons's physician store assistant. Please call with questions. )
Prescriptions:
New
amlodipine [Norvasc] 10 mg tablet
10 mg PO DAILY Qty: 30 0RF
Continued
glyburide 2.5 mg Tablet
2.5 mg PO DAILY
simvastatin 10 mg Tablet
10 mg PO HS
ascorbic acid (vitamin C) [Vitamin C] 500 mg Tablet
500 mg PO BID
vitamin B complex Capsule
1 cap PO DAILY
cholecalciferol (vitamin D3) [Vitamin D3] 50 mcg (2,000 unit) Capsule
50 mcg PO BID
Eliquis 2.5 mg tablet
2.5 mg PO BID Qty: 30 0RF
Visbiome 112.5 billion cell Capsule
1 cap PO DAILY
docusate sodium [Colace] 100 mg capsule
100 mg PO BIDPRN PRN (Reason: constipation)
ondansetron 4 mg tablet,disintegrating
4 mg PO Q8HPRN PRN (Reason: nausea)
acetaminophen 500 mg capsule
1,000 mg PO Q6HPRN PRN (Reason: mild Pain)
Discontinued
triamterene-hydrochlorothiazid 37.5-25 mg Tablet
1 tab PO BID
trandolapril-verapamil 2-240 mg Tablet, Ir - Er, Biphasic 24hr
1 tab PO DAILY
nebivolol 5 mg Tablet
5 mg PO DAILY
Discharge Orders:
Discharge Patient (As Directed); Ordered 11/23/23
Ordered By: Juan Fabian
Discharge Date and Time
Print Language: LATVIAN
[2023-11-23] MEDS: NOVOLOG FLEXPEN-LOW RESISTANCE 1 UNITS SC (13:01)
[2023-11-23 14:39] VITALS: BP 157/76
== END 2023-11-23 16:22 | disposition home or self-care (01) | DRG 641 ==
LOC: 4 EAST ACU 18:59
PROVIDERS: Physician Assistant; Specialist; ADMITTING PHYSICIAN Hospitalist; ATTENDING PHYSICIAN Internal Medicine; CONSULT PHYSICIAN Internal Medicine Cardiovascular Disease; EMERGENCY PHYSICIAN Emergency Medicine; FAMILY PHYSICIAN Nurse Practitioner Adult Health
DX: E87.1 Hypo-osmolality and hyponatremia (principal); D68.51 Activated protein C resistance; E11.9 Type 2 diabetes mellitus without complications; I10 Essential (primary) hypertension; E66.09 Other obesity due to excess calories; Z68.30 Body mass index [BMI] 30.0-30.9, adult; R55 Syncope and collapse; E78.00 Pure hypercholesterolemia, unspecified; E87.6 Hypokalemia; K59.00 Constipation, unspecified; R11.0 Nausea; W01.0XXA Fall on same level from slipping, tripping and stumbling without subsequent striking against object, initial encounter; Y92.009 Unspecified place in unspecified non-institutional (private) residence as the place of occurrence of the external cause; Z98.890 Other specified postprocedural states; Z96.651 Presence of right artificial knee joint; Z79.01 Long term (current) use of anticoagulants; Z79.84 Long term (current) use of oral hypoglycemic drugs; Z79.899 Other long term (current) drug therapy; Z87.891 Personal history of nicotine dependence; Z88.1 Allergy status to other antibiotic agents
CPT/HCPCS: 70450; 80048; 80053; 81003; 82962; 83930; 83935; 84300; 84443; 84484; 85025; 85027; 87811; 93005; 93306; 96360; 97116; 97162; 97166; 99285

== ENCOUNTER → 2023-11-26 15:36 | Outpatient (REF) | payer MEDICARE, SELFPAY | LOC: RAD 15:36 | PROVIDERS: ATTENDING PHYSICIAN Nurse Practitioner Adult Health | DX: E87.1 Hypo-osmolality and hyponatremia (principal); M79.675 Pain in left toe(s) | CPT/HCPCS: 73630 ==

== ENCOUNTER → 2024-10-20 11:31 | Outpatient (REF) | payer MEDICARE, SELFPAY | LOC: WDC 11:31 | PROVIDERS: ATTENDING PHYSICIAN Nurse Practitioner Adult Health | DX: Z12.31 Encounter for screening mammogram for malignant neoplasm of breast (principal) | CPT/HCPCS: 77063; 77067 ==